=== PATIENT | female | born 1990 | race Caucasian/White ===

== ENCOUNTER 2017-04-08 09:09 | Emergency (ER) | payer OTHER ==
--- NOTE | 2017-04-08 09:27 | ED Physician Chart ---
ED Chief Complaint/HPI - Patient Information Date Seen:: 04/08/17 Time Seen:: 09:23 Chief Complaint:: abdominal pain History of Present Illness:: 26 yo female developed periumbilical abdominal pain last night and the pain migrated to RLQ a few hours later. Patient had nausea and vomited 2-3 times with diarrhea. Chills without fever. Allergies:: Allergies Allergy/AdvReac Type Severity Reaction Status Date / Time erythromycin base Allergy Verified 04/08/17 09:17 [From Pediazole] sulfisoxazole Allergy Verified 04/08/17 09:17 [From Pediazole] Vitals:: Vital Signs - 8 hr 04/08/17 09:17 Temp 98.7 F HR 112 RR 21 BP 116/53 O2 Sat % 97 ED Review of Systems - Review of Systems General/Constitutional: No fever, Chills Skin: No skin lesions Head: No headache Eyes: No pain ENT: No nasal drainage Neck: No neck pain Cardio Vascular: No chest pain Pulmonary: No SOB GI: Nausea, Vomiting, Diarrhea, Pain G/U: No dysuria Musculoskeletal: No bone or joint pain Psychiatric: No prior psych history ED Past Medical History - Past Medical History Past Medical History: No significant medical hx, Other () Social History: Non Smoker, No Alcohol, No Drug Use Surgical History: None ED Physical Exam - Physical Examination General/Constitutional: Awake, Alert Head: Atraumatic Eyes: PERRL Skin: No skin lesions Neck: No nuchal rigidity Respiratory: No Wheeze/Rhonchi/Rales Cardio Vascular: RRR, No murmur, gallop, rubs, NL S1 S2 Other GI comments:: soft, RLQ tenderness, no rebounding tenderness Extremities: normal strength in all extremities Neuro/Psych: No focal deficits ED Labs/Radiology/EKG Results - Radiology Results Results: CT abdomen: enteritis, fluid filled appendix without acute inflammation ED Assessment - Assessment General Assessment: Gastroenteritis Assessment/Comments:: CBC, CMP, UA, urine hCG CT abdomen without contrast NS 1L bolus IV Zofran Pantoprazole D/c home F/u PCP or return to ER if symptoms worsen ED Septic Shock - . Is Septic Shock (SBP<90, OR Lactate>4 mmol\L) present?: No - <6hrs of presentation: Vital Signs: Vital Signs - 8 hr 04/08/17 09:17 Temp 98.7 F HR 112 RR 21 BP 116/53 O2 Sat % 97 ED Reassessment (Disposition) - Reassessment Reassessment Condition:: Improved - Patient Disposition Discharge/Transfer:: Home ED Discharge Plan - Patient Disposition Admit/Discharge/Transfer: PT DISCHARGED HOME Condition at Disposition: Stable Instructions: Diarrhea, Viral Gastroenteritis, Nausea and Vomiting, Easy-to- Read Additional Instructions: DISCHARGE: Patient given medication reconciliation form and D/C instructions. Patient verbalized understanding. MD discussed with patient the results and treatment provided. Ambulatory with steady gait for discharge to home. Patient in stable condition, ID band removed. IV catheter removed, intact and dressing applied, no active bleeding. Patient educated on pain management. All belongings sent with patient.
[2017-04-08 09:40] LABS: URINE MICROSCOPIC INDICATED? YES; URINE SOURCE RANDOM
[2017-04-08 09:49] LABS: URINE BILIRUBIN NEGATIVE (NEGATIVE); URINE BLOOD TRACE (NEGATIVE); URINE GLUCOSE (UA) NEGATIVE (NEGATIVE); URINE KETONE NEGATIVE (NEGATIVE); URINE LEUKOCYTE ESTERASE NEGATIVE (NEGATIVE); URINE NITRATE NEGATIVE (NEGATIVE); URINE PH 8.5 (4.6 - 8.0); URINE PROTEIN NEGATIVE (NEGATIVE); URINE UROBILINOGEN 0.2 E.U./dL (0.2 - 1.0)
[2017-04-08 09:59] LABS: URINE CLARITY TURBID (CLEAR); URINE COLOR YELLOW
[2017-04-08 10:00] LABS: URINE BACTERIA 2+ /hpf (NONE SEEN); URINE EPITHELIAL CELLS MODERATE /lpf (FEW); URINE WBC 0-2 /hpf (0-5); URINE YEAST FEW /hpf (NONE SEEN)
[2017-04-08 10:04] LABS: AMYLASE SERUM 61 U/L (29-103); LIPASE 25 U/L (11-82)
[2017-04-08 10:06] LABS: ALB/GLOB RATIO 1.8 (1.0-1.8); ALBUMIN 4.4 gm/dL (3.7-5.3); ALKALINE PHOSPHATASE 39 U/L (34-104); ANION GAP 11.5 (7.0-16.0); BILIRUBIN,TOTAL 0.6 mg/dL (0.3-1.0); BUN - UREA NITROGEN 9 mg/dL (7-25); CALCIUM SERUM 8.9 mg/dL (8.6-10.3); CARBON DIOXIDE 25.3 mEq/L (21.0-31.0); CHLORIDE 102 mEq/L (98-107); CREATININE - SERUM 0.6 mg/dL (0.6-1.2); GFR AFRICAN-AMERICAN > 60.0 ml/min (>90); GFR NON AFRICAN-AMERICAN > 60.0 ml/min; GLUCOSE 119 mg/dL (70-105); POTASSIUM SERUM 3.8 mEq/L (3.5-5.1); SGOT 181 U/L (13-39); SGPT/ALT 103 U/L (7-52); SODIUM SERUM 135 mEq/L (136-145); TOTAL PROTEIN,SERUM 6.8 gm/dL (6.0-8.3)
[2017-04-08 10:07] LABS: BASOPHILE ABSOLUTE 0.2 Th/cumm (0-0.2); HEMATOCRIT 42.7 % (41.0-60); HEMOGLOBIN 14.5 gm/dL (12-16); LYMPHOCYTE ABSOLUTE 0.5 Th/cmm (1.5-3.0); MANUAL DIFF REQUIRED? YES; MEAN CELL VOLUME 86.4 fl (81-100); MEAN CORPUSCULAR HEMOGLOBIN 29.3 pg (27.0-31.0); MEAN CORPUSCULAR HGB CONC 33.9 pg (28.0-36.0); MEAN PLATELET VOLUME 8.5 fl; MONOCYTE ABSOLUTE 0.2 Th/cmm (0.3-1.0); NEUTROPHILE ABSOLUTE 9.5 Th/cmm (1.8-8.0); PLATELET COUNT 281 Th/cmm (150-400); RED BLOOD COUNT 4.94 Mil/cmm (3.80-5.10); RED CELL DISTRIBUTION WIDTH 12.5 % (11.5-20.0); WHITE BLOOD COUNT 10.4 Th/cmm (4.8-10.8)
--- NOTE | 2017-04-08 10:29 | Diagnostic Imaging Report ---
CT abdomen and pelvis without intravenous contrast Indication: Abdominal pain Comparison: None, Technique: Axial images were obtained from the lung bases to the bilateral proximal femurs without IV contrast. Coronal reconstructions were made. total DLP: [id number], CTDI12.3 Findings: hypoventilatory and atelectatic changes of the lung bases are noted. The hepatic dome is incompletely visualized. Assessment of solid organs is limited due to lack of IV contrast. No evidence of focal hepatic or splenic lesions. No focal pancreatic or adrenal lesions. No evidence of hydronephrosis or nephrolithiasis. Distended stomach is noted. Moderate amount of stool is seen throughout the colon. No evidence of bowel obstruction. Fluid-filled appendix is noted with no evidence of surrounding inflammatory change. No evidence of free fluid or free air. Nonspecific fluid-filled loops of small bowel are noted. The osseous structures demonstrate no acute abnormalities. IMPRESSION: Nonspecific fluid-filled loops of bowel which may be due to enteritis. No evidence of bowel obstruction. Distended stomach. Fluid-filled appendix. No evidence of surrounding inflammatory change to suggest acute process. No evidence of hydronephrosis.
[2017-04-08 10:42] LABS: BAND NEUTROPHILE 4 % (0-10); LYMPHOCYTE 5 % (20-50); MONOCYTE 8 % (2-10); NEUTROPHILS 83 % (40-80); PLATELET ESTIMATE ADEQUATE (NORMAL); TOTAL CELLS COUNTED 100
[2017-04-08] MEDS ORDERED: Sodium Chloride 0.9% 1,000 ML IV ONE (10:50)
== END 2017-04-08 12:00 | disposition home or self-care (01) ==
LOC: ER 09:09
DX: K52.9 Noninfective gastroenteritis and colitis, unspecified (principal)
CPT/HCPCS: 99285; 96374; 96375; 74176; 36415; 85007; 85027; 87086; 81001; 82150; 81025; 83690; 80053; C9113; J2405; J7030; Z7610